=== PATIENT | male | born 1975 | race Caucasian/White ===

== ENCOUNTER 2020-12-09 16:28 | Outpatient (REF) | payer OTHER, SELFPAY ==
[2020-12-10 12:06] LABS: COVID-19 RT-PCR UVMMC Result Negative (Negative)
== END 2020-12-09 16:29 | disposition home or self-care (01) ==
LOC: NCHCN 16:28
PROVIDERS: PCP Internal Medicine; Visit Provider Internal Medicine
DX: Z20.822 Contact with and (suspected) exposure to COVID-19 (principal)
CPT/HCPCS: U0003

== ENCOUNTER 2023-03-01 07:47 | Day surgery (SDC) | payer MEDICAID, SELFPAY ==
--- NOTE | 2023-02-28 18:23 | W.PM.DSUDISC ---
Date of service: 02/28/23 Time of Service: 10:28 Discharge Plan Disposition Patient Disposition: Home Condition: Good Discharge Details Reason For Visit: Right inguinal hernia repair Attending Provider: Payam Mead Primary Care Provider: Kelly Coronado Home Meds and New Rx's Prescriptions: New tramadol 50 mg tablet 50 mg PO Q8H PRN (Reason: pain) Qty: 9 0RF Rx Instructions: Take 1 tablet by mouth up to every 8 hours if needed for severe pain. Take great care as this medication can be addictive. Continued dextroamphetamine-amphetamine [Adderall] 20 mg tablet 60 mg PO TID Rx Instructions: administer doses at least 4-6 hours apart ibuprofen 200 mg tablet 600 mg PO Q6H PRN Discharge Instructions Additional Instructions: Jonel, we were able to repair a small right-sided inguinal hernia today. Like we talked about before surgery, I used a permanent implantable mesh to minimize the chance of any recurrence over the course of your life. Expect some increasing pain over the next 24 to 48 hours. Have also provided a prescription for some tramadol in the case that Tylenol and ibuprofen are not sufficient. You should also be using ice packs to help provide some relief over the area. You should be up and moving around throughout this afternoon and tomorrow. Avoid any heavy lifting, or strenuous activity across the area. I look forward to seeing you in the office in follow-up. 1. Resume all of your medications. 2. Ice packs and heating pads are fine to use for pain. 3. Okay to use tylenol and ibuprofen over the counter as needed. Use tramadol as needed for severe pain. 4. Leave bandage in place for 24 hours, then remove. 5. Shower with warm soapy water. Pat dry. Use a bandaid if needed to protect your clothing. 6. No soaking or tub baths until I see you in the office. 7. No heavy lifting until I see you in the office. 8.Call the office (or go directly to the emergency room after hours) if you notice any of the following: Develop chills (warm to touch), or if you have a thermometer and your temperature is above 101 Difficulty breathing or difficultly swallowing Persistent vomiting Any bleeding ? exceeding one tablespoon 6. Call your physician if the site where your intravenous was started becomes red, swollen, painful, and warm to touch. Activity:: No heavy lifting Remove Dressings/Wound Care:: 24 hours Shower/Bathe:: 24 hours Diet:: As Tolerated Discharge Orders Discharge Orders: Discharge Order (Routine); Ordered 02/28/23 Ordered By: Payam Mead DS: Diagnosis Discharge Diagnosis (1) Right lower quadrant pain: Status: Acute
[2023-03-01] VITALS (12 sets, daily range): BP systolic 85–137; BP diastolic 53–100; PULSE 53–68; RESP 13–131; TEMP 36.3–36.5; O2SAT 95–100; BMI 31.7
--- NOTE | 2023-03-01 06:36 | W.ANESPRE ---
General Info Date of Service Date Performed: 03/01/23 Height: 5 ft 8 in Weight: 94.801 kg Body Mass Index (BMI): 31.7 Surgical Procedure: Operation Date: 03/01/23 08:40 Proposed Procedure Side Surgeon p Herniorrhaphy Inguinal w/Mesh Right Payam Mead MD Meds Allergies and Home Medications Allergies Allergy/AdvReac Type Severity Reaction Status Date / Time No Known Allergies Allergy Verified 03/01/23 08:12 Home Medication Medication Instructions Recorded dextroamphetamine-amphetamine 20 60 mg PO TID 07/04/20 mg tablet (Adderall) ibuprofen 200 mg tablet 600 mg PO Q6H PRN 02/27/23 Current Visit Medications: Current Medications Generic Name Dose Route Start Last Admin Trade Name Freq PRN Reason Stop Dose Admin Acetaminophen 1,000 mg 03/01/23 06:00 Acetaminophen 500 Mg Tab PO 03/01/23 23:59 PREOP CLOBY Celecoxib 200 mg 03/01/23 06:00 Celecoxib 200 Mg Cap PO 03/01/23 23:59 PREOP COLBY Gabapentin 600 mg 03/01/23 06:00 Gabapentin 300 Mg Cap PO 03/01/23 23:59 PREOP COLBY Ringer's Solution 1,000 mls @ 80 mls/hr 03/01/23 06:00 IV 03/30/23 23:59 [facility] IV Miscellaneous Supplies 1 each 03/01/23 06:00 Iv Access IV 03/30/23 23:59 DIRECTED COLBY Morphine Sulfate 2 mg 02/28/23 18:25 Morphine 4 Mg/Ml Syr IVP 03/30/23 18:24 Q1H PRN PRN Sodium Chloride 0 ml 03/01/23 06:00 Normal Saline Flush 10 Ml Syr IV 03/30/23 23:59 PRN PRN Sodium Chloride 0 ml 03/01/23 06:00 Normal Saline 10 Ml Vial IJ 03/30/23 23:59 DIRECTED PRN Sterile Water 0 ml 03/01/23 06:00 Water,Injection,Sterile 10 Ml Vial IJ 03/30/23 23:59 DIRECTED PRN Tramadol HCl 50 mg 02/28/23 18:25 Tramadol 50 Mg Tab PO 03/30/23 18:24 Q6H PRN PRN Pain PFSH Active Problems Active Problems: Problem Status Onset Code Right lower quadrant pain R10.31 Abdominal hernia K46.9 Medical History Medical History (Updated 03/01/23 @ 08:12 by Deepali Soriano) Chronic hepatitis C Per pt. states he was treated for this in 2017 and no longer has it and has done a series of panals that states it has resolved History of trigger finger surgery 2021 Testicular microlithiasis Surgical History Surgical History S/P appendectomy Tobacco Smoking/Tobacco Use Status: Current every day Tobacco Type: cigarettes Alcohol Alcohol Intake: former Substance Use Substance use: Occasionally Substance use type: marijuana Vital Signs and Lab Results Lab Results Blood Type / Crossmatch: No Data to Display Complete Blood Count: No Data to Display Complete Metabolic Panel: No Data to Display Liver Function Panel: No Data to Display Coagulation Panel: No Data to Display Cardiac Panel: No Data to Display Arterial Blood Gas: No Data to Display Venous Blood Gas: No Data to Display Pancreas Panel: No Data to Display Thyroid Panel: No Data to Display Infectious Disease: No Data to Display Blood Cultures: No Data to Display Toxicology Panel: No Data to Display Anesthesia Assessment and Plan Anesthesia History Personal History: No History of Anesthesia Complications Family History: No Family History of Anesthesia Complications Exercise Tolerance Exercise Tolerance: Metabolic Equivalents>4 Pertinent Negatives Pertinent Negatives: No Symptoms of GERD Cardiac & Pulmonary Exam Cardiac Exam: Normal S1/S2 Heart Sounds Pulmonary Exam: Clear Bilateral Breath Sounds Implantable Cardiac Device Does patient have a Pacemaker or an ICD?: No Airway Exam Known Difficult Airway: No Mallampati Class: 3 Mouth Opening: Normal (> 3cm) Thyromental Distance: Greater than 3 cm Neck Range of Motion: Full ROM Neck Circumference: Normal Teeth Condition: Normal Dentition Tooth Numberin. missing ASA Classification ASA Score: ASA 2 Emergency Case?: No NPO Status NPO Status: NPO Clears >2 hours, Solids >8 hours Anesthesia Plan Resuscitation Status: Full Code Anesthesia Technique: General Anesthesia Airway Planned: Endotracheal Tube Pain Management: Surgeon and patient request nerve block Monitors Used: Standard Monitors
[2023-03-01] MEDS: Acetaminophen 500 MG TAB 1000 MG PO (08:39)
[2023-03-01] MEDS: Celecoxib 200 MG CAP PO (08:39)
[2023-03-01] MEDS: Gabapentin 300 MG CAP 600 MG PO (08:39)
[2023-03-01] MEDS: Lactated Ringers 1,000 ML 80 ML IV (09:00)
[2023-03-01] MEDS: ceFAZolin 2 GM/50 ML BAG IVPB (09:10)
--- NOTE | 2023-03-01 09:38 | W.ANESNERVE ---
Nerve Block Single Injection Procedure Date and Time Date Performed: 03/01/23 Procedure Start: 09:16 Location Where Procedure Performed Procedure Location: Operating Room Procedure Stop: : Reason Performed: Postoperative Analgesia Requesting Provider: Payam Mead Timeout Performed Timeout Performed: Yes Monitoring Used ECG, Blood Pressure, SpO2 and ETCO2 Sterility Sterility: Hand Hygiene, Surgical Cap, Surgical Mask, Sterile Gloves and Chlorhexidine Sedation Given During Procedure Sedation Given (Indicate Dose Given): No Sedation given Patient Mental Status Patient Mental Status: Performed under general anesthesia Nerve Block 1st Nerve Block: Laterality: Right Block Type: TAP Unilateral Ultrasound Image Saved?: Yes Needle / Catheter Used: 100mm SonoPlex II Local Anesthetic Bolus (Indicate Dose Given): Lidocaine used for local infiltration of skin, Injected in 3-5ml increments after negative blood aspiration and Bupivacaine 0.25% Dose:: 20 ml Additives (Indicate Dose Given): None Ultrasound: Sterile probe cover and gel used Nerve Stimulator: Not Used Paresthesia: None Procedure Tolerated: No Complications and Patient tolerated well Procedure Outcome: Successful Performed By: Armaan Elmore
--- NOTE | 2023-03-01 10:32 | ROE_ITS ---
Date of service: 03/01/23 Time of Service: 10:33 Operative Note Operative Note DATE OF PROCEDURE: 03/01/23 PRE-OP DIAGNOSIS: Right inguinal hernia POST-OP DIAGNOSIS: other (Indirect right inguinal hernia) PROCEDURE: Right inguinal herniorrhaphy with mesh SURGEON: Payam Mead [employer]LECTRIC MOTOR TESTER: Yadi Rodriguez ANESTHESIA TYPE: Local By Surgeon, General LMA/ETT and Other (Ultrasound-guided tap block) Refer to Anesthesia Record ESTIMATED BLOOD LOSS: 25 COMPLICATIONS: None Patient was transported to: PACU Patient's condition: stable Indications: Jonel is a 48-year-old male with approximately 2 years of right-sided inguinal pain that radiates down into the scrotum. Findings: Indirect right inguinal hernia Procedure Description: I began by confirming the correct site with the patient. Next, after induction of general anesthesia, the anesthesia specialist performed a real-time ultrasound-guided right-sided tap block. Surgical site was then prepped and draped in the usual fashion. I began by making an oblique incision over the right inguinal region. I dissected down through the skin to the deep fascia. Next, I incised the fascia along the length of the inguinal canal to the external ring. I then carefully identified the ilioinguinal nerve and sharply divided it. Once this was complete, I bluntly dissected the shelving edge of the inguinal ligament down towards the pubic tubercle. Here, I encircled all cord structures with a Wayne drain. Next, I began dissecting the specific cord structures. Great care was taken to spare the vas deferens and the blood supply to the testicle. Next, I isolated the hernia sac from the other inguinal structures. I reduced it back to its normal anatomic position. This was a indirect inguinal hernia. I then used a small mesh plug to obliterate the defect at the internal ring. I fixed in place with interrupted Prolene stitches. Next, I buttressed the posterior floor of the inguinal canal with a large mesh patch. I started by fixing it to the pubic tubercle. Next, I used Prolene sutures to affix it to the shelving edge of the inguinal ligament and the conjoined tendon. Laterally I tacked it to the external oblique fascia and reconstructed an internal ring without any strain on the cord structures. Once this was complete, I irrigated the surgical field. It appeared hemostatic. I then closed the anterior portion of the fascia to reconstruct the front wall of the inguinal canal. I did this with interrupted Vicryl stitches. Once again, I irrigated the surgical field and inspected for hemostasis. Finally, I approximated the superficial fascia and the deep layers of the skin with absorbable suture. Skin was closed with running subcuticular stitches. Bandages were applied, the patient was awakened and transferred to the recovery unit.
[2023-03-01] MEDS: fentaNYL 100 MCG/2 ML VIAL IVP ×2 (11:04→11:10)
[2023-03-01] MEDS: LORazepam 2 MG/ML VIAL 0.5 MG IVP ×2 (11:24→11:35)
[2023-03-01] MEDS: HYDROmorphone 2 MG/ML SYR IVP (11:41)
--- NOTE | 2023-03-01 11:44 | W.ANESPOSTOP ---
Postoperative Evaluation Date, Time and Location Date Performed: 03/01/23 Time Performed: 11:44 Patient Location: PACU Vital Signs Most Recent Imported Vital Signs: Most Recent Vital Signs Temp Pulse Resp BP Pulse Ox 36.5 C 60 19 109/75 99 03/01/23 11:34 03/01/23 11:34 03/01/23 11:34 03/01/23 11:34 03/01/23 11:34 Pain Score Most Recent Pain Score: Most Recent Pain Score Pain Level 10 03/01/23 11:20 Assessment Mental Status: Awake (Alert & Oriented to Patient Baseline) Airway and Respiratory Function: Patent airway with normal (patient baseline) respiratory exam Cardiovascular Function: Hemodynamically Stable Hydration Status: Adequately Hydrated Nausea & Vomiting: No Nausea or Vomiting Pain: Pain is Moderate or Severe Postoperative Pain Management: Pain being addressed with medication Peripheral Nerve Block: Regional nerve block not resolved at time of post operative discharge
[2023-03-01] MEDS: traMADol 50 MG TAB PO (12:38)
== END 2023-03-01 13:50 | disposition home or self-care (01) ==
PROVIDERS: PCP Internal Medicine; Visit Provider Surgery
PROC: (CPT 49505; principal; 2023-03-01 08:30)
DX: K40.90 Unilateral inguinal hernia, without obstruction or gangrene, not specified as recurrent (principal)
CPT/HCPCS: 49505; 76942; C1781; J0690; J1100; J1170; J2001; J2060; J2250; J2405; J2704; J3010